=== PATIENT | male | born 1985 ===

== ENCOUNTER 2018-05-24 12:49 | Outpatient (CLI) | payer OTHER ==
[~2018-05-24] VITALS: Ht 165.1 cm; Wt 105.7 kg
== END 2018-05-24 13:10 | disposition home or self-care (01) ==
LOC: OFIC 805 12:49
DX: J34.89 Other specified disorders of nose and nasal sinuses (principal); J32.8 Other chronic sinusitis; K21.0 Gastro-esophageal reflux disease with esophagitis; R49.0 Dysphonia